=== PATIENT | female | born 1990 | race Caucasian/White ===

== ENCOUNTER 2018-06-17 15:46 | Emergency (ER) | payer OTHER ==
[2018-06-17] MEDS: ONDANSETRON (ODT) 4 MG TAB ODT (17:47)
[2018-06-17] MEDS: HYDROCODONE/APAP (5/325) TAB PO (17:48)
[2018-06-17 19:04] LABS: URINE BLOOD (Dip) POC Negative (NEGATIVE); URINE GLUCOSE (Dip) POC Negative (NEGATIVE); URINE KETONES (Dip) POC Negative (NEGATIVE); URINE LEUKOCYTE EST (Dip) POC Negative (NEGATIVE); URINE NITRITE (Dip) POC Negative (NEGATIVE); URINE TOTAL PROTEIN POC Trace (NEGATIVE)
== END 2018-06-17 19:59 | disposition home or self-care (01) ==
LOC: FTE 15:46
DX: S39.012A Strain of muscle, fascia and tendon of lower back, initial encounter (principal); V49.50XA Passenger injured in collision with unspecified motor vehicles in traffic accident, initial encounter
CPT/HCPCS: 72100; 81003; 81025; 99283-25